=== PATIENT | female | born 1995 | race Caucasian/White ===

== ENCOUNTER 2020-03-09 13:09 | Emergency (ER) | payer MEDICAID, SELFPAY ==
[2020-03-09 13:17] VITALS: BP 99/71; PULSE 65; RESP 18; TEMP 36.7; O2SAT 95; BMI 20.9
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
[2020-03-09 14:16] LABS: Basophils % 0.5 %; Eosinophils % 0.3 %; Hematocrit 41.3 % (37.0-47.0); Hemoglobin 13.8 g/dL (11.5-15.3); Lymphocytes # 1.5 10^3/uL (0.8-4.8); Lymphocytes % 22.5 %; Mean Corpuscular HGB Conc 33.4 g/dL (30.0-36.0); Mean Corpuscular Hemoglobin 30.4 pg (28.0-34.0); Mean Platelet Volume 9.1 fL (7.4-10.4); Monocytes # 0.4 10^3/uL (0.2-0.9); Monocytes % 6.8 %; Neutrophils # 4.53 10^3/uL (1.8-7.7); Neutrophils % 69.7 %; Nucleated Red Blood Cells % 0 %; Platelet Count 309 10^3/cmm (130-400); Red Blood Count 4.54 10^6/uL (4.1-5.3); Red Cell Distribution Width 11.2 % (12.1-15.1); White Blood Count 6.5 10^3/uL (4.0-10.0)
[2020-03-09 14:42] LABS: Alanine Aminotransferase 14 U/L (0-33); Albumin Level 4.8 g/dL (3.5-5.2); Alkaline Phosphatase 84 IU/L (35-105); Anion Gap 16.1 (5-19); Aspartate Amino Transferase 18 U/L (0-32); Blood Urea Nitrogen 11 mg/dL (6-20); Calcium 9.7 mg/dL (8.5-10.5); Carbon Dioxide 22 mmol/L (22-29); Chloride 101 mmol/L (98-107); Globulin 2.6 g/dL (1.3-4.6); Glomerular Filtration Rate 150.3 mL/min (90-130); Glucose 97 mg/dL (65-115); Osmolality Calculated 279 mOsm/kg (285-295); Potassium 4.1 mmol/L (3.5-5.1); Sodium 135 mmol/L (136-145); Thyroid Stimulating Hormone 1.02 uIU/mL (0.27-4.20); Total Bilirubin 0.9 mg/dL (0.15-1.2); Total Protein 7.4 g/dL (6.6-8.7)
[2020-03-09 14:43] LABS: Acetaminophen < 5.0 ug/mL (10-30); Alcohol Level < 10 mg/dL (0-10); Prolactin 128.5 ng/mL (4.8-23.3); Salicylate < 0.3 mg/dL (3-10)
[2020-03-09 14:53] LABS: Urine Color Yellow (Yellow)
[2020-03-09 14:57] LABS: Bilirubin Urine Neg (Negative); Blood Urine Neg (Negative); Glucose Urine UA Norm (Normal); Ketones Urine Negative (Negative); Leukocyte Esterase Urine 2+ (Negative); Nitrate Urine Negative (Negative); Protein Urine Neg (Negative); Specific Gravity, Urine 1.015 (1.005-1.030); Urine Appearance Clear (CLEAR); Urobilinogen Urine Norm (Negative)
--- NOTE | 2020-03-09 14:57 | PC.NURSE ---
pt reports that her brother's roommate that lives with her was her boyfriend and he broke up with her last night. pt states My boyfriend broke up with me last night. That's why I acted like that. I'm upset. I'm heartbroken. pt repeats every other sentence my boyfriend broke up with me. When attempting to ask the pt how she feels about today's events and her emotional state, the pt continues to repeat my boyfriend broke up with me last night. He just broke up with me. I don't know why.
[2020-03-09 14:58] LABS: Add Urine Microscopic? YES
[2020-03-09 15:00] LABS: Add Urine Culture? Yes; Bacteria Urine 1+ /hpf; Mucus Urine TRACE /hpf
[2020-03-09 15:34] LABS: Amphetamines Screen Urine Negative (Negative); Barbiturates Screen Urine Negative (Negative); Benzodiazepines Screen Urine Negative (Negative); Cocaine Screen Urine Negative (Negative); Opiate Screen Urine Negative (Negative); PCP Screen Urine Negative (Negative); THC Screen Urine Negative (Negative)
[2020-03-09 16:11] VITALS: PULSE 88; RESP 18; O2SAT 98
== END 2020-03-09 16:12 | disposition home or self-care (01) ==
PROVIDERS: Emergency Provider Nurse Practitioner Family
DX: R45.6 Violent behavior (principal); F41.9 Anxiety disorder, unspecified
CPT/HCPCS: 12345; 80053; 80306; 80307; 81001; 81025; 84146; 84443; 85025; 87086; 99284